=== PATIENT | male | born 1940 | race Caucasian/White ===

== ENCOUNTER 2017-12-28 16:34 | Emergency (ER) | payer OTHER ==
[~2017-12-28] VITALS: Ht 195.6 cm; Wt 92.0 kg
[~2017-12-28 16:34] MED LIST: AMLO2.5T PO; GABA100C4 PO; GLUCTAB PO; LIPA1CAP5 PO; SERT-129 PO; ZOCO40TA PO
[2017-12-28 16:43] VITALS: PULSE 92; RESP 18; TEMP 98.3; O2SAT 95
[2017-12-28] MEDS ORDERED: SODIUM CHLORIDE 0.9% FLUSH 10 ML FLUSH IVF PRN (17:00)
[2017-12-28] MEDS ORDERED: DICL1GEL7 TOPICAL (17:05)
[2017-12-28] MEDS ORDERED: SERT-129 PO (17:05)
[2017-12-28] MEDS ORDERED: LISI-515 PO (17:05)
[2017-12-28] MEDS ORDERED: METF500T4 PO (17:05)
[2017-12-28] MEDS ORDERED: ASPI-516 CHEW (17:05)
[2017-12-28] MEDS ORDERED: GABA100C4 PO (17:05)
[2017-12-28 17:07] VITALS: BP_SYST 102; BP_SYST 131; BP_DIAS 65; BP_DIAS 82; RESP 16; RESP 18
[2017-12-28] MEDS ORDERED: SODIUM CHLOR 0.9% 1000 ML INJ 1,000 ML IV ONE (17:15)
--- NOTE | 2017-12-28 17:33 | RADRPT ---
EXAM DATE: 12/28/2017 5:26 PM EDT AGE/SEX: 77 years / Male INDICATIONS: Short of breath. Weakness. CLINICAL DATA: This is the patient's initial encounter. Patient reports that signs and symptoms have been present for 1 day and indicates a pain score of 4/10. MEDICAL/SURGICAL HISTORY: Cardiovascular disease. Coronary artery stent. Pacemaker. COMPARISON: [facility], XR CHEST PA AND LAT, 11/24/2014. . FINDINGS: Left subclavian pacer wires are present with tips in the right atrium and right ventricle. There is s light scarring in right lower lung, however there is superimposed parenchymal consolidation not prese nt previously with mild left lung base atelectasis and/or infiltrate . CONCLUSION: Bibasilar infiltrates worse on the right not present previously. Electronically signed by: Kavitha Crespo MD 12/28/2017 5:32 PM EDT
[2017-12-28 17:46] LABS: AUTOMATED NEUTROPHIL # 5.3 TH/MM3 (1.8-7.7); BASOPHIL # 0.1 TH/MM3 (0-0.2); BASOPHIL % 0.7 % (0.0-2.0); EOSINOPHIL # 0.1 TH/MM3 (0-0.4); EOSINOPHIL % 1.1 % (0.0-4.0); HEMATOCRIT 40.8 % (39.0-51.0); HEMOGLOBIN 14.4 GM/DL (13.0-17.0); LYMPH % 25.6 % (9.0-44.0); LYMPHOCYTE # 2.1 TH/MM3 (1.0-4.8); MEAN CELL VOLUME 81.8 FL (80.0-100.0); MEAN CORPUSCULAR HEMOGLOBIN 28.8 PG (27.0-34.0); MEAN CORPUSCULAR HGB CONC 35.3 % (32.0-36.0); MEAN PLATELET VOLUME 6.6 FL (7.0-11.0); MONO % 7.2 % (0.0-8.0); MONOCYTE # 0.6 TH/MM3 (0-0.9); NEUT % 65.4 % (16.0-70.0); PLATELET COUNT 164 TH/MM3 (150-450); RED BLOOD COUNT 4.99 MIL/MM3 (4.50-5.90); RED CELL DISTRIBUTION WIDTH 13.5 % (11.6-17.2); WHITE BLOOD COUNT 8.1 TH/MM3 (4.0-11.0)
[2017-12-28 17:48] LABS: PROTHROMBIN TIME - PATIENT 10.3 SEC (9.8-11.6)
[2017-12-28 17:51] LABS: ALBUMIN 3.4 GM/DL (3.4-5.0); ALT (GPT) 19 U/L (12-78); AST (GOT) 12 U/L (15-37); BICARBONATE 25.2 MEQ/L (21.0-32.0); BLOOD UREA NITROGEN 17 MG/DL (7-18); CALCIUM 8.5 MG/DL (8.5-10.1); CHLORIDE 105 MEQ/L (98-107); CREATININE 1.11 MG/DL (0.60-1.30); GLOMERULAR FILTRATION RATE 64 ML/MIN (>89); GLUCOSE,RANDOM 287 MG/DL (74-106); MAGNESIUM 1.9 MG/DL (1.5-2.5); SODIUM (NA) 140 MEQ/L (136-145)
[2017-12-28 17:55] LABS: ALKALINE PHOSPHATASE 87 U/L (45-117); TOTAL BILIRUBIN ADULT 0.7 MG/DL (0.2-1.0); TOTAL PROTEIN 6.3 GM/DL (6.4-8.2); TROPONIN I LESS THAN 0.02 NG/ML (0.02-0.05)
--- NOTE | 2017-12-28 18:00 | PD ---
HPI Chief Complaint: Syncope/Near-Syncope Time Seen by Provider: 16:46 Travel History International Travel<30 days: No Contact w/Intl Traveler<30days: No Traveled to known affect area: No History of Present Illness HPI Patient is a 77-year-old male presenting to the emergency department after near syncopal episode. Patient was at the [place] [facility] getting physical therapy on his knee when he became dizzy and lightheaded, he states he felt sweaty and clammy. Patient also reports feeling short of breath at the time. He denies any chest pain, headache. Patient states that he has had suprapubic abdominal pain that is ongoing for last several weeks. He also reports abdominal bloating, constipation. He states he has one bowel movement a week on average. He also reports a 20 pound weight loss over the last 2 months. He denies any dark or tarry like stools. Patient denies any previous syncopal episodes. Symptom onset was sudden, symptoms are moderate in nature. Patient reported feeling better upon arrival to the emergency department. PFSH Past Medical History Hx Anticoagulant Therapy: Yes (aspirin) Depression: Yes Cardiac Catheterization: Yes High Cholesterol: Yes Chest Pain: Yes COPD: Yes Coronary Artery Disease: Yes Diabetes: Yes Patient Takes Glucophage: Yes Endocrine: Yes Gastrointestinal Disorders: Yes (CONSTIPATION ) GERD: Yes Hiatal Hernia: Yes Hypertension: Yes Renal Failure: No Thyroid Disease: Yes Ulcer: No Tetanus Vaccination: Unknown PNEUMOCCOCAL Vaccine (Year): 1 Past Surgical History Abdominal Surgery: Yes (HERNIA REPAIR WITH [facility]) Cholecystectomy: Yes Coronary Stent: Yes Pacemaker: Yes (2008) Other Surgery: Yes Social History Alcohol Use: Yes (occasionally) Tobacco Use: Yes (2 CIGARS/DAY) Substance Use: No Allergies-Medications (Allergen,Severity, Reaction): Coded Allergies: No Known Allergies (Verified , 03/17/15) Reported Meds & Prescriptions Reported Meds & Active Scripts Active Reported Gabapentin 100 Mg Cap 100 Mg PO HS Diclofenac Topical 1% Gel 1 Applic TOPICAL QID Sertraline (Sertraline HCl) 100 Mg Tab 100 Mg PO DAILY Aspirin 81 Mg Chew 81 Mg CHEW DAILY Metformin ER (Metformin HCl) 500 Mg Masoud 500 Mg PO DAILY With evening meal Lisinopril 20 Mg Tab 20 Mg PO DAILY Review of Systems Except as stated in HPI: all other systems reviewed are Neg HENT: Positive: Lightheadedness Cardiovascular: Positive: Diaphoresis, No: Chest Pain or Discomfort Respiratory: Positive: Shortness of Breath Gastrointestinal: Positive: Abdominal Pain, Constipation, No: Nausea Genitourinary: Positive: Hesitancy, Pelvic Pain Neurologic: Positive: Dizziness, No: Change in Mentation Physical Exam Narrative GENERAL: Well-developed, well-nourished, alert elderly gentleman. Presenting in no acute distress. SKIN: Warm and dry. HEAD: Atraumatic. Normocephalic. EYES: Pupils equal and round. No scleral icterus. No injection or drainage. ENT: No nasal bleeding or discharge. Mucous membranes pink and moist. NECK: Trachea midline. No JVD. CARDIOVASCULAR: Regular rate and rhythm. RESPIRATORY: No accessory muscle use. Clear to auscultation. Breath sounds equal bilaterally. GASTROINTESTINAL: Abdomen soft, tender to palpation in suprapubic region and left lower quadrant, nondistended. Hepatic and splenic margins not palpable. Slight guarding, no rebound, positive bowel sounds. MUSCULOSKELETAL: Extremities without clubbing, cyanosis, or edema. No obvious deformities. NEUROLOGICAL: Awake and alert. No obvious cranial nerve deficits. Motor grossly within normal limits. Five out of 5 muscle strength in the arms and legs. Normal speech. PSYCHIATRIC: Appropriate mood and affect; insight and judgment normal. Data Data Last Documented VS Vital Signs Date Time Temp Pulse Resp B/P (MAP) Pulse Ox O2 Delivery O2 Flow Rate FiO2 12/28/17 17:07 74 16 131/82 (98) 73 18 102/65 (77) 12/28/17 16:43 98.3 95 Orders Orders Electrocardiogram (12/28/17 16:59) Complete Blood Count With Diff (12/28/17 16:59) Comprehensive Metabolic Panel (12/28/17 16:59) Magnesium (Mg) (12/28/17 16:59) Ckmb (Isoenzyme) Profile (12/28/17 16:59) Troponin I (12/28/17 16:59) Act Partial Throm Time (Ptt) (12/28/17 16:59) Prothrombin Time / Inr (Pt) (12/28/17 16:59) Urinalysis - C+S If Indicated (12/28/17 16:59) Chest, Single Ap (12/28/17 16:59) Ecg Monitoring (12/28/17 16:59) Iv Access Insert/Monitor (12/28/17 16:59) Oximetry (12/28/17 16:59) Sodium Chloride 0.9% Flush (Ns Flush) (12/28/17 17:00) Orthostatic Vital Signs (12/28/17 16:59) Lipase (12/28/17 16:59) Ct Abd/Pel W Iv Contrast(Rout) (12/28/17 ) Sodium Chlor 0.9% 1000 Ml Inj (Ns 1000 M (12/28/17 17:15) Iohexol 350 Inj (Omnipaque 350 Inj) (12/28/17 18:23) Ed Discharge Order (12/28/17 20:25) Labs Laboratory Tests Test 12/28/17 17:20 12/28/17 18:50 White Blood Count 8.1 TH/MM3 Red Blood Count 4.99 MIL/MM3 Hemoglobin 14.4 GM/DL Hematocrit 40.8 % Mean Corpuscular Volume 81.8 FL Mean Corpuscular Hemoglobin 28.8 PG Mean Corpuscular Hemoglobin Concent 35.3 % Red Cell Distribution Width 13.5 % Platelet Count 164 TH/MM3 Mean Platelet Volume 6.6 FL Neutrophils (%) (Auto) 65.4 % Lymphocytes (%) (Auto) 25.6 % Monocytes (%) (Auto) 7.2 % Eosinophils (%) (Auto) 1.1 % Basophils (%) (Auto) 0.7 % Neutrophils # (Auto) 5.3 TH/MM3 Lymphocytes # (Auto) 2.1 TH/MM3 Monocytes # (Auto) 0.6 TH/MM3 Eosinophils # (Auto) 0.1 TH/MM3 Basophils # (Auto) 0.1 TH/MM3 CBC Comment DIFF FINAL Differential Comment Prothrombin Time 10.3 SEC Prothromb Time International Ratio 1.0 RATIO Activated Partial Thromboplast Time 24.7 SEC Blood Urea Nitrogen 17 MG/DL Creatinine 1.11 MG/DL Random Glucose 287 MG/DL Total Protein 6.3 GM/DL Albumin 3.4 GM/DL Calcium Level 8.5 MG/DL Magnesium Level 1.9 MG/DL Alkaline Phosphatase 87 U/L Aspartate Amino Transf (AST/SGOT) 12 U/L Alanine Aminotransferase (ALT/SGPT) 19 U/L Total Bilirubin 0.7 MG/DL Sodium Level 140 MEQ/L Potassium Level 4.1 MEQ/L Chloride Level 105 MEQ/L Carbon Dioxide Level 25.2 MEQ/L Anion Gap 10 MEQ/L Estimat Glomerular Filtration Rate 64 ML/MIN Total Creatine Kinase 31 U/L Troponin I LESS THAN 0.02 NG/ML Lipase 195 U/L Urine Color YELLOW Urine Turbidity CLEAR Urine pH 5.5 Urine Specific [place] GREATER THAN 1.050 Urine Protein TRACE mg/dL Urine Glucose (UA) 150 mg/dL Urine Ketones NEG mg/dL Urine Occult Blood NEG Urine Nitrite NEG Urine Bilirubin NEG Urine Urobilinogen LESS THAN 2.0 MG/DL Urine Leukocyte Esterase NEG Urine WBC LESS THAN 1 /hpf Urine Hyaline Casts 2 /lpf Microscopic Urinalysis Comment CULT NOT INDICATED MDM Medical Decision Making Medical Screen Exam Complete: Yes Emergency Medical Condition: Yes Interpretation(s) Vital Signs Date Time Temp Pulse Resp B/P (MAP) Pulse Ox O2 Delivery O2 Flow Rate FiO2 12/28/17 17:07 74 16 131/82 (98) 73 18 102/65 (77) 12/28/17 16:43 98.3 92 18 95 Differential Diagnosis Orthostatic hypotension versus metabolic abnormality versus cardiac arrhythmia versus bowel obstruction versus diverticulitis versus UTI versus other Narrative Course Patient is a 77-year-old male presenting via EMS for evaluation of a near syncopal episode. Patient was placed on inspector process, continuous pulse oximetry, IV access was established. Blood pressure was low on arrival. Patient was given a liter of IV fluids. Orthostatic vital signs were obtained, they were positive. Initial EKG shows a paced rhythm with a rate of 71. Chest x-ray shows bibasilar infiltrates worse on the right, not present previously. CBC is unremarkable, chemistry is unremarkable, cardiac enzymes are negative 1 set, coags are unremarkable CT the abdomen and pelvis shows severe atherosclerotic disease with infrarenal aortic aneurysm measuring up to 4.3 cm. There is no acute finding to identify patient's abdominal pain. There is also a 1.7 cm low-density lesion in the right mid kidney that does not meet criteria for simple cyst. This could represent a complex cyst or solid mass/neoplasm. On outpatient basis is recommended patient have an ultrasound or renal protocol CT with and without IV contrast. Patient was ambulating emergency department without difficulty. He reported feeling better after he was given a liter of IV fluids. Additionally his orthostatic vital signs were reassessed, he still had a drop in his systolic pressure however his heart rate remained stable. At this point patient again is requesting to be discharged home. He will be given a copy of his CAT scan report. He was advised to follow-up with the [place] clinic tomorrow. He was given strict return precautions. He was advised to return immediately for any new or worsening symptoms. Patient verbalized understanding of these instructions. Plan of care was discussed with attending physician. Patient is stable for discharge. Diagnosis Primary Impression: Orthostatic hypotension Additional Impression: Abnormal CT of the abdomen Referrals: Primary Care Physician 1 day At the [facility] Patient Instructions: General Instructions, Hypotension (ED), Near Syncope (ED) Additional Instructions: Follow-up at the [facility] in 1-2 days Return to emergency department immediately for any new or worsening symptoms Change positions slowly Maintain adequate fluid intake Med/Other Pt SpecificInfo: No Change to Meds Disposition: 01 DISCHARGE HOME Condition: Stable Joyce Morgan Dec 28, 2017 18:00
[2017-12-28] MEDS ORDERED: IOHEXOL 350 MG/ML 10 ML VIAL (for RAD DIAG) IVCONTRAST ONE (18:23)
--- NOTE | 2017-12-28 18:30 | RADRPT ---
EXAM DATE: 12/28/2017 6:22 PM EDT AGE/SEX: 77 years / Male INDICATIONS: Abdominal pain. CLINICAL DATA: This is the patient's initial encounter. Patient reports that signs and symptoms have been present for 1 day and indicates a pain score of 0/10. MEDICAL/SURGICAL HISTORY: Hypertension. Hiatal hernia. Gastroesophageal reflux disease. Sanjuana l stones. Diabetes. Cholecystectomy. ORAL CONTRAST: No oral contrast ingested. RADIATION DOSE: 12.60 CTDI (mGy) COMPARISON: No prior exams available for comparison. TECHNIQUE: Multiple contiguous axial images were obtained through the abdomen and pelvis following b olus infusion of 100 ml Omnipaque 350 (iohexol) nonionic water-soluble contrast as a single exam do se. No oral contrast ingested. Using automated exposure control and adjustment of the mA and/or kV a ccording to patient size, the radiation dose was kept as low as reasonably achievable to obtain optim al diagnostic quality images. FINDINGS: There is respiratory motion artifact. Lower chest: There is atelectasis at the lung bases as well as respiratory motion artifact. Lung cyst is present in the right lower lobe. Hepatobiliary: No focal liver lesion is identified. Hepatic vasculature demonstrates no abnormality. Cholecystectomy clips are present. There is no bile duct dilatation. Kidneys: No hydronephrosis is present. There is a nonobstructing stone in the left lower pole collect ing system measuring 5 mm. In the right mid kidney laterally there is a 1.7 cm low-density lesion. [place] measurements are 27. Adrenal Glands: Within normal limits. Spleen: Within normal limits. Pancreas: Within normal limits. Vascular: There is severe atherosclerotic disease of the abdominal aorta. A fusiform aneurysm is pres ent measuring up to 4.3 x 4.0 cm. There is coronary artery calcification. Pacing wire is present in t he right heart. Bowel/Mesentery: The stomach and small bowel demonstrate no abnormality. No acute colon abnormality i s seen. There is no free intraperitoneal air or fluid. Abdominal Wall: No hernia is visualized. Retroperitoneum: No lymphadenopathy. Bladder: No wall thickening or mass. Reproductive: Within normal limits. Inguinal: No lymphadenopathy or hernia. Musculoskeletal: No acute osseous abnormality is identified. There are degenerative changes of the tahmina mbar spine. CONCLUSION: 1. No acute finding is identified to explain the patient's abdominal pain. However, there is severe atherosclerotic disease with infrarenal aortic aneurysm measuring up to 4.3 cm. 2. There is a 1.7 cm low-density lesion in the right mid kidney that does not meet criteria for a si mple cyst. This could represent a complex cyst or solid mass/neoplasm. Suggest correlating with any p rior imaging studies, if available. Otherwise, consider correlating on an elective basis with ultraso und or renal protocol CT with and without intravenous contrast. Electronically signed by: Yoel Sellers MD 12/28/2017 6:29 PM EDT
[2017-12-28 19:15] LABS: BILIRUBIN, URINE NEG (NEG); BLOOD, URINE NEG (NEG); GLUCOSE,URINE 150 mg/dL (NEG); HYALINE CAST, URINE 2 /lpf (RARE); KETONE, URINE NEG (NEG); NITRITE,URINE NEG (NEG); PH, URINE 5.5 (5.0-8.5); URINE COLOR YELLOW (YELLW/STRAW); URINE LEUKOCYTE ESTERASE NEG (NEG)
[2017-12-28 20:38] VITALS: BP_SYST 138; BP_SYST 166; BP_SYST 171; BP_DIAS 75; BP_DIAS 76; BP_DIAS 78; RESP 18; RESP 20
--- NOTE | 2017-12-29 16:00 | EKG ---
Date Performed: 12/28/2017 Time Performed: 17:32:28 PTAGE: 77 years EKG: ELECTRONIC ATRIAL PACEMAKER ELECTRONIC VENTRICULAR PACEMAKER ABNORMAL RHYTHM ECG Since the PREVIOUS TRACING , no significant change noted PREVIOUS TRACIN01/30/2014 11.25 DOCTOR: Tamera Rivas Interpretating Date/Time 12/29/2017 15:57:19
== END 2017-12-28 21:33 | disposition home or self-care (01) ==
LOC: NEPC 16:34
DX: I95.1 Orthostatic hypotension (principal); R93.5 Abnormal findings on diagnostic imaging of other abdominal regions, including retroperitoneum; R10.9 Unspecified abdominal pain; R94.31 Abnormal electrocardiogram [ECG] [EKG]; J44.9 Chronic obstructive pulmonary disease, unspecified; I10 Essential (primary) hypertension; I25.10 Atherosclerotic heart disease of native coronary artery without angina pectoris; E78.00 Pure hypercholesterolemia, unspecified; E11.9 Type 2 diabetes mellitus without complications; F17.290 Nicotine dependence, other tobacco product, uncomplicated; F32.9 Major depressive disorder, single episode, unspecified; Z95.0 Presence of cardiac pacemaker; Z95.5 Presence of coronary angioplasty implant and graft; Z79.84 Long term (current) use of oral hypoglycemic drugs; Z79.899 Other long term (current) drug therapy
CPT/HCPCS: 71045; 74177; 80053; 81001; 82550; 83690; 83735; 84484; 85025; 85610; 85730; 93005; 99285; J7030; Q9967